=== PATIENT | female | born 2005 | race Two or more races ===

== ENCOUNTER 2023-10-31 14:47 | Emergency (ER) | payer BC, SELFPAY ==
[2023-10-31 14:48] VITALS: BP 112/73; PULSE 64; PULSE 69; RESP 17; RESP 25; TEMP 36.2; O2SAT 97; BMI 12.3
--- NOTE | 2023-10-31 15:09 | EKG12_ITS ---
Test Reason : SYNCOPE Blood Pressure : / mmHG Vent. Rate : 064 BPM Atrial Rate : 064 BPM P-R Int : 294 ms QRS Dur : 086 ms QT Int : 426 ms P-R-T Axes : 054 054 050 degrees QTc Int : 439 ms Sinus rhythm with 1st degree A-V block Otherwise normal ECG Confirmed by Ab Thornton ([id number]), international editorial producer JO-ANN TORRES ([id number]) on 11/01/2023 10:21:56 AM Referred By: Confirmed By:Ab Thornton
[2023-10-31] MEDS: Ondansetron 4 MG/2 ML Vial IV (15:17)
[2023-10-31 15:23] LABS: Absolute Lymphocyte Count 1.72 X10^3/uL (0.83-4.51); Absolute Neutrophil Count 2.1 X10^3/uL (2.0-7.7); Basophil# 0.03 X10^3/uL; Basophil% 0.7 % (0-1); Eosinophil# 0.03 X10^3/uL; Eosinophils% 0.7 % (0-5); Hematocrit 37.9 % (37-47); Hemoglobin 12.5 g/dL (12.0-15.0); Lymphocyte # 1.72 X10^3/ul (0.83-4.51); Lymphocyte % 39.7 % (19-41); Mean Corpuscular Hgb 28.7 pg (27.0-32.0); Mean Corpuscular Volume 87.1 fL (81-99); Mean Platelet Vol. 9.7 fl (6.2-12.0); Monocyte# 0.44 X10^3/uL; Monocyte% 10.2 % (0-10); NRBC Flagged by Analyzer 0 % (0-5); Neutrophil # 2.09 X10^3/uL (2.7-7.7); Neutrophil % 48.2 % (47-70); Platelet Count 219 K/mm3 (150-450); RBC Distribution Width CV 13.1 % (11.6-14.6); RBC Distribution Width SD 41.4 fl (35.1-43.9); Red Blood Count 4.35 M/mm3 (4.2-5.4); White Blood Count 4.3 K/mm3 (4.4-11.0)
--- NOTE | 2023-10-31 15:23 | EX.ED.DYSGE1 ---
HPI History of Present Illness Chief Complaint: Syncope Informant: patient and parent Narrative Narrative: Presents here for syncopal episode. Patient here with her father. Patient was shadowing vascular surgeon for debridement. Reported she was watching became nauseated queasy, she passed out hitting the back of the wall. Mild headache back of her head. No prodromal chest pains or shortness of breath. She has similar symptoms with COVID vaccination in the past. Reported she had contractures and incontinence of urine. Last menstrual period 2 weeks ago. She has normal cycles monthly. Denies any blood in the stools. Denies urinary symptoms. Patient did not eat or drink much this morning. Prior similar symptoms: Yes PFSH PFSH Home Medications ?Medication ?Instructions ?Recorded ?Last Taken ?Type metoclopramide HCl 5 mg tablet 5 mg PO Q8H PRN PRN nausea and 10/31/23 Unknown Rx (Reglan) vomiting #10 tabs ondansetron 4 mg disintegrating 4 mg PO Q8H PRN PRN Nausea #10 tabs 10/31/23 Unknown Rx tablet potassium chloride 20 mEq 20 meq PO DAILY #7 tabs 10/31/23 Unknown Rx tablet,extended release(part/cryst) Allergy/AdvReac Type Severity Reaction Status Date / Time No Known Allergies Allergy Verified 10/31/23 15:17 Social History Smoking Status: Never smoker ROS ROS ED Constitutional Constitutional ED: Denies chills, fever(s) or sweats Eyes Eyes: Denies change in vision ENT ENT ED: Reports dysphagia; Denies sore throat Cardiovascular Cardiovascular: Reports syncope; Denies chest pain, leg edema, palpitations or racing heartbeat Respiratory/Chest Respiratory/Chest: Denies cough, dyspnea or dyspnea on exertion Gastrointestinal Gastrointestinal: Reports nausea; Denies abdominal pain, diarrhea or vomiting Genitourinary Genitourinary ED: Denies dysuria, hematuria or urinary frequency Musculoskeletal Musculoskeletal: Denies back pain, extremity pain or neck pain Integumentary Denies rash or wounds Neurologic Neurologic: Reports headache(s); Denies paresthesias or weakness EXAM Physical Exam Const Vital Signs: 10/31/23 14:48 10/31/23 14:48 10/31/23 16:48 Temperature 97.2 F L Temperature Source Axillary Pulse Rate 69 64 63 Respiratory Rate 25 H 17 16 Blood Pressure 112/73 112/73 108/67 Blood Pressure Mean 86 86 80 Pulse Ox 97 97 98 Oxygen Delivery Method Room Air Room Air Room Air 10/31/23 18:00 10/31/23 18:42 10/31/23 19:56 Temperature 97.2 F L 98.7 F Temperature Source Oral Pulse Rate 66 76 82 Respiratory Rate 17 16 Blood Pressure 115/75 114/71 113/77 Blood Pressure Mean 88 85 89 Pulse Ox 97 98 Oxygen Delivery Method Room Air Positive well nourished and well developed General Appearance ED: well developed and NAD HEENT Reports moist mucous membranes normocephalic and atraumatic Eyes EOMs intact bilaterally and conjunctivae normal General Eye ED: Yes normal appearance of both eyes Neck no lymphadenopathy and supple General: Negative for tenderness Chest Wall Chest: Negative for tenderness Resp normal respiratory effort and normal air movement Effort and Inspection: symmetric chest movement; Negative for respiratory distress Cardio regular rate, regular rhythm and no murmurs Peripheral Pulses: pulses 2+ throughout GI normal to inspection, nondistended, normoactive bowel sounds and non-tender Palpation: Negative for guarding or rebound tenderness present Extremity normal to inspection General Extremety ED: Negative for edema or tenderness General Extremity: Negative for edema Neuro oriented x3, CN's II-XII intact bilaterally and no sensory deficits noted Neuro Narrative: No focal deficits. Sensorium / Orientation: awake and alert Skin no rashes or lesions noted and no wounds MDM MDM MDM Narrative Medical decision making narrative: Interventions / MDM: Differential diagnosis: Syncope, concussion Diagnosis considered but do not suspect: Intracranial hemorrhage however Nexus CT head criteria negative. My EKG interpretation: Sinus rate of 64, no ST or T wave changes. First-degree AV block. QTc 439. Imaging independently reviewed and interpreted by myself: CT brain: No acute process. External documents reviewed: N/A Test considered but not ordered:N/A ED course: Patient with history concerning for vasovagal syncope. Nexus CT head criteria negative. EKG obtained will check basic labs. Zofran ordered. Will give p.o. fluids. 1535: Hemoglobin 12.5. Was called back to the room patient developed tingling of her whole hand. No weakness good chief security officer strength bilaterally. With her head injury now with new tingling, will order CT brain for further evaluation. 1630: Apparently in the interim had emesis with increased nausea she was given IV Reglan. IV fluids ordered. Potassium did return at 2.9 BUN [address] brain review shows no acute process. Pending final read. CT brain negative. Clinically feeling better after IV Reglan. Father requesting IV potassium of 20 mEq. This was ordered. Stable tolerated fine. Tolerating p.o. intake. Prescription for Zofran Reglan and potassium sent to pharmacy. All questions answered. Re-evaluation: stable Disposition discussed with patient/family/significant other: Patient and father Case discussed with consulting clinician: N/A This note was generated with [employer] dictation software. It may contain incorrect words, spelling, and punctuation that were not noted in checking the note before signing. Lab Data Attestation: I reviewed the patient's lab results. Labs: Laboratory Results - last 24 hr 10/31/23 15:11 WBC 4.3 L RBC 4.35 Hgb 12.5 Hct 37.9 MCV 87.1 MCH 28.7 MCHC 33.0 RDW Std Deviation 41.4 RDW Coeff of Christian 13.1 Plt Count 219 MPV 9.7 Immature Gran % (Auto) 0.500 Neut % (Auto) 48.2 Lymph % (Auto) 39.7 Toombs % (Auto) 10.2 H Eos % (Auto) 0.7 Baso % (Auto) 0.7 Absolute Neuts (auto) 2.1 Absolute Lymphs (auto) 1.72 Nucleated RBC % 0 Sodium 139 Potassium 2.9 L Chloride 110 H Carbon Dioxide 19.0 L Anion Gap 10 BUN 19 H Creatinine 0.86 Estim Creat Clear Calc 57.64 Est GFR (MDRD) Af Amer 109 Est GFR (MDRD) Non-Af 90 BUN/Creatinine Ratio 22.1 H Glucose 133 H Calcium 9.5 Serum , Qual NEGATIVE Radiography Diagnostic Testing: Clinical Impression(s) from Imaging Studies Brain CT 10/31/23 15:35 IMPRESSION: Normal unenhanced CT scan of the brain. Electronically Signed: Girma Tripp DO at 16:30 EDT , Discharge Plan Triage Chief Complaint: Syncope ED Provider: Dwayne Armstrong Dx/Rx/DC Orders Clinical Impression: Concussion, Syncope, vasovagal, Hypokalemia Instructions: Diagnosing Syncope, Concussion Dc Prescriptions: New ondansetron 4 mg tablet,disintegrating 4 mg PO Q8H PRN PRN (Reason: Nausea) Qty: 10 0RF metoclopramide HCl [Reglan] 5 mg tablet 5 mg PO Q8H PRN PRN (Reason: nausea and vomiting) Qty: 10 0RF potassium chloride 20 mEq tablet,ER particles/crystals 20 meq PO DAILY Qty: 7 0RF Stand Alone Forms: ED Work / School Excuse Primary Care Provider: Care Physician,No Primary Referrals: Care Physician,No Primary [Primary Care Provider] - Activity Restrictions/Additional Instructions: EKG normal. Hemoglobin 12.5. Creatinine normal. Your potassium 2.9. Take potassium replacement as prescribed. Tylenol as needed for headache. Nausea medicines as needed. Print Language: [place]gu[place] Disposition Disposition: Home, Self Care Discharge Date/Time: 10/31/23 19:57
--- NOTE | 2023-10-31 15:35 | CT_ITS ---
STUDY: CT BRAIN WITHOUT CONTRAST REASON FOR EXAM: Female, 17 years old. Head injury RADIATION DOSAGE (If Supplied By Facility): CTDIvol = ( 44.99 ) mGy, DLP = ( 745.49 ) mGycm TECHNIQUE: Transaxial CT imaging of the brain was performed without administration of intravenous contrast material. Individualized dose optimization techniques were used for this CT. COMPARISON: No relevant priors. FINDINGS: Normal soft tissue structures. Normal calvarium. Normal size ventricles and extra-axial spaces for the patient''s age. Normal white matter tracts of the cerebral hemispheres. Normal basal ganglia and thalami. Normal brainstem. Normal cerebellum. There is no intracranial hemorrhage. There are no findings of an acute ischemic infarction. Normal visualized paranasal sinuses. CT/Brain/Head without Contrast IMPRESSION: Normal unenhanced CT scan of the brain. Electronically Signed: Girma Tripp DO at 16:30 EDT ,
[2023-10-31] MEDS: 0.9% Normal Saline (1000mL) 1,000 ML 999 ML IV (15:43)
[2023-10-31 15:59] LABS: Anion Gap 10 (5-15); BUN 19 mg/dL (7-18); BUN/Creat Ratio 22.1 RATIO (10-20); Calcium,Total 9.5 mg/dL (8.5-10.1); Chloride 110 mmol/L (98-107); Creatinine, Serum 0.86 mg/dL (0.55-1.02); EST Glomerular Filtration Rate 90 mL/min (>60); Est Glom Filt Rate - Afr Amer 109 mL/min (>60); Estimated Creatinine Clearance 57.64 ml/min; Glucose 133 mg/dL (74-106); Potassium 2.9 mmol/L (3.5-5.1); Sodium Level 139 mmol/L (136-145)
[2023-10-31] MEDS: Metoclopramide 10 MG/2 ML Vial 5 MG IV (16:08)
[2023-10-31 16:27] LABS: Internal QC Validated? YES +Cl - CLEAR BKGD; Pregnancy, Serum, hCG Quali. NEGATIVE Negative; Record Kit Lot#, Serum Preg. 718089
[2023-10-31 16:48] VITALS: BP 108/67; PULSE 63; RESP 16; O2SAT 98
[2023-10-31] MEDS: Potassium Chloride 10mEq/100mL 10 MEQ/100 ML IV.SOLN. 100 MEQ IV BOLUS ×2 (17:46→18:38)
[2023-10-31 18:00] VITALS: BP 115/75; PULSE 66
[2023-10-31 18:42] VITALS: BP 114/71; PULSE 76; RESP 17; TEMP 36.2; O2SAT 97
[2023-10-31 19:56] VITALS: BP 113/77; PULSE 82; RESP 16; TEMP 37.1; O2SAT 98
[2023-11-01 16:09] LABS: Bedside Glucose 98 mg/dL (74-106)
== END 2023-10-31 19:57 | disposition home or self-care (01) ==
PROVIDERS: Emergency Provider Emergency Medicine; Visit Provider Emergency Medicine
DX: S06.0X0A Concussion without loss of consciousness, initial encounter (principal); R55 Syncope and collapse; E87.6 Hypokalemia; X58.XXXA Exposure to other specified factors, initial encounter
CPT/HCPCS: 70450; 80048; 82962; 84703; 85025; 93005; 96361; 96374; 96375; 99284; J7030; A4216; J2405